=== PATIENT | female | born 1960 ===

== ENCOUNTER 2021-08-14 04:42 | Day surgery (SDC) | payer BC ==
[2021-08-12 10:52] VITALS: BMI 33.2
[2021-08-14 08:28] VITALS: TEMP 97.1
[2021-08-14 09:18] VITALS: BP 126/76; PULSE 81
== END 2021-08-14 09:25 | disposition home or self-care (01) ==
LOC: JASU-ENDO 04:42
PROVIDERS: ATTEND Internal Medicine Gastroenterology
PROC: 0DJD8ZZ Inspection of Lower Intestinal Tract, Via Natural or Artificial Opening Endoscopic (ICD-10-PCS; principal; 2021-08-14 08:02)
DX: Z12.11 Encounter for screening for malignant neoplasm of colon (principal); K62.7 Radiation proctitis; Z85.41 Personal history of malignant neoplasm of cervix uteri; Z85.72 Personal history of non-Hodgkin lymphomas